=== PATIENT | male | born 1985 | race Caucasian/White ===

== ENCOUNTER 2018-12-25 23:20 | Emergency (ER) | payer SELFPAY ==
[~2018-12-25] VITALS: Ht 160 cm; Wt 69.4 kg
[2018-12-25 23:24] VITALS: Ht 160 cm; Wt 69.4 kg
[2018-12-26 01:53] VITALS: BP 118/76
== END 2018-12-26 01:53 | disposition home or self-care (01) ==
LOC: ED 23:20
DX: S41.012A Laceration without foreign body of left shoulder, initial encounter (principal); X58.XXXA Exposure to other specified factors, initial encounter; Y93.89 Activity, other specified; Y92.89 Other specified places as the place of occurrence of the external cause; Y99.8 Other external cause status
CPT/HCPCS: 90715; J2001; Q0092